=== PATIENT | male | born 1995 | race Caucasian/White ===

== ENCOUNTER 2025-02-09 15:04 | Emergency (ER) | payer OTHER ==
[~2025-02-09] VITALS: Ht 182.9 cm; Wt 105.0 kg
[2025-02-09] MEDS ORDERED: FLUORESCEIN SOD 1 EA STRP OD ONE (16:15)
[2025-02-09] MEDS ORDERED: TETRACAINE HCL 0.5% 4 ML BTL OD ONE (16:15)
[2025-02-09] MEDS ORDERED: ERYTHROMYCIN1 GM OP (17:08)
[2025-02-09] MEDS ORDERED: ERYTHROMYCIN 3.5 GM HOME.PACK OP ONE (17:15)
[2025-02-09] MEDS ORDERED: ERYTHROMYCIN 1 GM TUBE OD ONE (17:15)
[2025-02-09 18:24] VITALS: BP 133/74
== END 2025-02-09 18:27 | disposition home or self-care (01) ==
LOC: ED 15:04
DX: S05.8X1A Other injuries of right eye and orbit, initial encounter (principal); W50.0XXA Accidental hit or strike by another person, initial encounter
CPT/HCPCS: 99283